=== PATIENT | male | born 2000 | race Caucasian/White ===

== ENCOUNTER 2023-11-04 15:49 | Emergency (ER) | payer OTHER ==
[2023-11-04 15:53] VITALS: TEMP 98
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
--- NOTE | 2023-11-04 16:50 | XR ---
EXAMINATION TYPE: XR knee complete LT DATE OF EXAM: 11/04/2023 COMPARISON: NONE HISTORY: Pain TECHNIQUE: 3 views of the left ankle are submitted for evaluation. FINDINGS: There is no evidence for fracture or dislocation. Ankle mortise is intact. Soft tissues are within normal limits. IMPRESSION: 1. No evidence for acute fracture.
[2023-11-04 18:12] VITALS: BP 132/78; PULSE 78; RESP 16
== END 2023-11-04 18:05 | disposition home or self-care (01) ==
LOC: EC 15:49
DX: S83.92XA Sprain of unspecified site of left knee, initial encounter (principal); F17.290 Nicotine dependence, other tobacco product, uncomplicated; Z88.1 Allergy status to other antibiotic agents; V86.56XA Driver of dirt bike or motor/cross bike injured in nontraffic accident, initial encounter; Y92.410 Unspecified street and highway as the place of occurrence of the external cause; Y93.55 Activity, bike riding
CPT/HCPCS: 99283